=== PATIENT | male | born 2000 | race Hispanic/Latino ===

== ENCOUNTER 2022-09-19 12:46 | Emergency (ER) | payer OTHER ==
[~2022-09-19] VITALS: Ht 175.3 cm; Wt 84.1 kg
[2022-09-19 12:49] VITALS: BP 118/58
[2022-09-19] MEDS ORDERED: KETOROLAC 30 MG/ML 1ML VIAL IM ONE (14:15)
== END 2022-09-19 15:36 | disposition home or self-care (01) ==
LOC: M ED 12:46
DX: S83.422A Sprain of lateral collateral ligament of left knee, initial encounter (principal); X50.0XXA Overexertion from strenuous movement or load, initial encounter; Y92.830 Public park as the place of occurrence of the external cause; Y93.89 Activity, other specified; Y99.8 Other external cause status
CPT/HCPCS: 73564; 96372; 99282; J1885

== ENCOUNTER → 2022-10-13 | Outpatient (CLI) | payer OTHER | LOC: M RAD 06:57 | PROVIDERS: ATTEND Physician Assistant | DX: M25.562 Pain in left knee (principal) ==

== ENCOUNTER 2023-09-28 05:59 | Day surgery (SDC) | payer OTHER ==
[~2023-09-28] VITALS: Ht 175.3 cm; Wt 91.2 kg
[~2023-09-28 05:59] MED LIST: FLUTISP NARES
[2023-09-28] MEDS ORDERED: TRANEXAMIC ACID 100 MG/ML 10ML VIAL IV ONE (06:00)
[2023-09-28] MEDS ORDERED: ceFAZolin SOD 2 GM in IV 1 EA IV ONE (06:00)
[2023-09-28] MEDS ORDERED: LR 1,000 ML IV SCH (06:15)
[2023-09-28] MEDS ORDERED: dexmedeTOMIDine (4MCG/ML)200MCG/50ML BTL (PRECEDEX) As Ordered ONE (06:58)
[2023-09-28] MEDS ORDERED: KETOROLAC 60MG 2ML VIAL As Ordered ONE (06:58)
[2023-09-28] MEDS ORDERED: ACETAMINOPHEN 1000MG 100ML IV BAG As Ordered ONE (06:58)
[2023-09-28] MEDS ORDERED: propofoL 200 MG/20 ML VIAL As Ordered ONE (06:58)
[2023-09-28] MEDS ORDERED: ONDANSETRON 4MG 2ML VIAL As Ordered ONE (06:58)
[2023-09-28] MEDS ORDERED: dexAMETHasone 10MG/1ML VIAL PRES.FREE PN ONE (07:05)
[2023-09-28] MEDS ORDERED: ROCURONIUM BROMIDE 50MG/5ML VIAL As Ordered ONE (07:05)
[2023-09-28] MEDS ORDERED: fentaNYL 100 MCG/2 ML INJECTION IV PRN (07:05)
[2023-09-28] MEDS ORDERED: ROPIvacaine 0.5% 30ML VIAL PN ONE (07:05)
[2023-09-28] MEDS ORDERED: MIDAZOLAM INJ 2MG/2ML VIAL IV PRN (07:05)
[2023-09-28] MEDS ORDERED: LIDOCAINE 1% SDV 5ML VIAL PN ONE (07:05)
[2023-09-28] MEDS ORDERED: ROPIvacaine 0.5% 30ML VIAL As Ordered ONE (07:10)
[2023-09-28] MEDS ORDERED: EPINEPHrine 1MG/ML INJ 30ML MD-VIAL As Ordered ONE (07:10)
[2023-09-28] MEDS ORDERED: TRANEXAMIC ACID 100 MG/ML 10ML VIAL As Ordered ONE (07:10)
[2023-09-28 07:49] VITALS: BP 128/68; TEMP 97.9; O2SAT 98
== END 2023-09-28 08:00 | disposition home or self-care (01) ==
LOC: M SDC 05:59
PROVIDERS: ATTEND Orthopaedic Surgery
DX: S83.512A Sprain of anterior cruciate ligament of left knee, initial encounter (principal); X58.XXXA Exposure to other specified factors, initial encounter; Z53.8 Procedure and treatment not carried out for other reasons
CPT/HCPCS: 29888; J0171

== ENCOUNTER 2023-10-05 07:58 | Day surgery (SDC) | payer OTHER ==
[~2023-10-05] VITALS: Ht 175.3 cm; Wt 89.9 kg
[2023-10-05] MEDS ORDERED: dexAMETHasone 10MG/1ML VIAL PRES.FREE PN ONE (08:15)
[2023-10-05] MEDS ORDERED: LIDOCAINE 1% SDV 5ML VIAL PN ONE (08:15)
[2023-10-05] MEDS ORDERED: ROPIvacaine 0.5% 30ML VIAL PN ONE (08:15)
[2023-10-05] MEDS ORDERED: LR 1,000 ML IV SCH ×2 (08:25→16:20)
[2023-10-05] MEDS: fentaNYL 100 MCG/2 ML INJECTION IV PRN (09:00)
[2023-10-05] MEDS: MIDAZOLAM INJ 2MG/2ML VIAL IV PRN (09:02)
[2023-10-05] MEDS ORDERED: ROCURONIUM BROMIDE 50MG/5ML VIAL As Ordered ONE (09:56)
[2023-10-05] MEDS ORDERED: TRANEXAMIC ACID 100 MG/ML 10ML VIAL As Ordered ONE (09:57)
[2023-10-05] MEDS ORDERED: LIDOCAINE 2% 100MG/5ML SDV (FOR ANES.) As Ordered ONE (09:57)
[2023-10-05] MEDS ORDERED: EPINEPHrine 1MG/ML INJ 30ML MD-VIAL As Ordered ONE (09:57)
[2023-10-05] MEDS ORDERED: ONDANSETRON 4MG 2ML VIAL As Ordered ONE (10:01)
[2023-10-05] MEDS: ceFAZolin SOD 2 GM in IV 1 EA IV ONE (11:50)
[2023-10-05] MEDS: TRANEXAMIC ACID 100 MG/ML 10ML VIAL IV ONE (11:55)
[2023-10-05] MEDS ORDERED: propofoL 200 MG/20 ML VIAL As Ordered ONE (12:05)
[2023-10-05] MEDS ORDERED: ACETAMINOPHEN 1000MG 100ML IV BAG As Ordered ONE (12:07)
[2023-10-05] MEDS ORDERED: dexmedeTOMIDine (4MCG/ML)200MCG/50ML BTL (PRECEDEX) As Ordered ONE (12:07)
[2023-10-05] MEDS ORDERED: HYDROmorphone HCL 2MG/ML 1ML VIAL As Ordered ONE (12:15)
[2023-10-05] MEDS: EPINEPHrine INJ 1 MG/ML 1ML AMP PN ONE (12:15)
[2023-10-05] MEDS ORDERED: HYDROMORPHONE HCL 0.5 MG/ 0.5 ML SYRINGE IV PRN (16:20)
[2023-10-05] MEDS ORDERED: oxyCODONE 5MG TAB PO PRN (16:20)
[2023-10-05] MEDS ORDERED: ONDANSETRON 4MG 2ML VIAL IV PRN (16:20)
[2023-10-05] MEDS ORDERED: fentaNYL 100 MCG/2 ML INJECTION IV PRN (16:20)
[2023-10-05 18:39] VITALS: BP 110/60; TEMP 98; O2SAT 97
== END 2023-10-05 18:40 | disposition home or self-care (01) ==
LOC: M SDC 07:58
PROVIDERS: ATTEND Orthopaedic Surgery
DX: M23.612 Other spontaneous disruption of anterior cruciate ligament of left knee (principal); M23.252 Derangement of posterior horn of lateral meniscus due to old tear or injury, left knee; M25.862 Other specified joint disorders, left knee; M23.42 Loose body in knee, left knee; Z72.0 Tobacco use
CPT/HCPCS: 27412; 27428; 29881; 73560; C1713; J0131; J0171; J0690; J1100; J1170; J2250; J2405; J3010

== ENCOUNTER 2024-03-31 08:08 | Day surgery (SDC) | payer OTHER ==
[~2024-03-31] VITALS: Ht 175.3 cm; Wt 92.1 kg
[2024-03-31] MEDS ORDERED: NS 1,000 ML IV SCH ×2 (09:05→11:20)
[2024-03-31] MEDS ORDERED: propofoL 200 MG/20 ML VIAL As Ordered ONE (09:49)
[2024-03-31] MEDS ORDERED: ROCURONIUM BROMIDE 50MG/5ML VIAL As Ordered ONE (09:49)
[2024-03-31] MEDS ORDERED: HYDROmorphone HCL 2MG/ML 1ML VIAL As Ordered ONE (09:49)
[2024-03-31] MEDS ORDERED: SUGAMMADEX SODIUM 500 MG/5 ML VIAL (BRIDION) As Ordered ONE (09:49)
[2024-03-31] MEDS ORDERED: fentaNYL 100 MCG/2 ML INJECTION As Ordered ONE (09:49)
[2024-03-31] MEDS ORDERED: MIDAZOLAM INJ 2MG/2ML VIAL As Ordered ONE (09:49)
[2024-03-31] MEDS ORDERED: ONDANSETRON 4MG 2ML VIAL As Ordered ONE (09:50)
[2024-03-31] MEDS ORDERED: LIDOCAINE 2% 100MG/5ML SDV (FOR ANES.) As Ordered ONE (09:53)
[2024-03-31] MEDS: COCAINE 4% 4ML NASAL SOLUTION BTL As Ordered ONE (10:27)
[2024-03-31] MEDS ORDERED: GLYCOPYRROLATE INJ 0.2 MG/ML 2 ML VIAL As Ordered ONE (10:31)
[2024-03-31] MEDS: LIDOCAINE W/EPINEPHRINE 1% 20ML VIAL As Ordered ONE (11:00)
[2024-03-31] MEDS: OXYMETAZOLINE 0.05% NASAL SPRAY (AFRIN) As Ordered ONE (11:10)
[2024-03-31] MEDS ORDERED: ONDANSETRON 4MG 2ML VIAL IV PRN (11:20)
[2024-03-31] MEDS ORDERED: oxyCODONE 5MG TAB PO PRN (11:20)
[2024-03-31] MEDS ORDERED: fentaNYL 100 MCG/2 ML INJECTION IV PRN (11:20)
[2024-03-31] MEDS ORDERED: HYDROMORPHONE HCL 0.5 MG/ 0.5 ML SYRINGE IV PRN (11:20)
[2024-03-31] MEDS ORDERED: LR 1,000 ML IV SCH (12:00)
[2024-03-31] MEDS ORDERED: ANEXSIA, NORCO 7.5MG/325MG TABLET(HYDROCODONE/APAP) PO PRN (12:00)
[2024-03-31 13:03] VITALS: BP 123/65; TEMP 97.2; O2SAT 100
== END 2024-03-31 13:08 | disposition home or self-care (01) ==
LOC: M SDC 08:08
PROVIDERS: ATTEND Otolaryngology
DX: J34.2 Deviated nasal septum (principal); J34.3 Hypertrophy of nasal turbinates; Z72.0 Tobacco use
CPT/HCPCS: 30140; 30520; C9143; J1100; J1171; J1596; J2250; J2405; J3010

== ENCOUNTER → 2025-04-17 | Outpatient (CLI) | payer OTHER | LOC: M PLAIMG 06:44 | PROVIDERS: ATTEND Physician Assistant | DX: M25.561 Pain in right knee (principal); M25.562 Pain in left knee ==